=== PATIENT | female | born 1970 | race Caucasian/White ===

== ENCOUNTER 2017-05-31 07:27 | Emergency (ER) | payer MEDICAID ==
[~2017-05-31] VITALS: Ht 152.4 cm; Wt 79.4 kg
[2017-05-31 07:41] VITALS: BP 158/94
--- NOTE | 2017-05-31 07:42 | NUR ---
PT AMBULATED TO BED 5 AT THIS TIME.
--- NOTE | 2017-05-31 07:49 | NUR ---
47F BIB SELF WITH FAMILY C/O "PINCHING" NON-RADIATING FINGER PAIN X 8 DAYS; PT STATES SHE WAS CUTING ONIONS AND SINCE THEN HER R THUMB HAS BEEN IN PAIN; ONE PUS FILLED VESCILES NOTED TO DISTAL R THUMB; NO OPEN WOUNDS; SKIN INTACT; PT AA0X4; RR ARE EVEN AND UNLABORED; PT DENIES ANY CP, SOB, OR N/V/D; AWAITING ER MD ZAMORA; ALL NEES MET AT THIS TIME
--- NOTE | 2017-05-31 07:58 | NUR ---
ER MD BY BEDSIDE EXAMINING PT
[2017-05-31] MEDS ORDERED: LIDOCAINE 1% 500 MG/50 ML VIAL INJ SCH (08:00)
[2017-05-31] MEDS ORDERED: KETOROLAC 60 MG/2 ML VIAL IM ONE (08:00)
--- NOTE | 2017-05-31 08:09 | NUR ---
X RAY BY BEDSIDE
[2017-05-31] MEDS ORDERED: LIDOCAINE 1% ED 50 ML ONE (08:20)
--- NOTE | 2017-05-31 08:29 | NUR ---
ER MD DEL ANGEL BY BEDSIDE DOING I&D; PATIENT TOLERATING WELL
[2017-05-31] MEDS ORDERED: NEOMYCIN/POLYMYXIN/BACITRACIN 0.9 GM/1 PKT TP ONE (08:50)
[2017-05-31 09:05] VITALS: BP 127/86
--- NOTE | 2017-05-31 09:07 | NUR ---
Patient discharged with v/s stable. Written and verbal after care instructions given and explained. Patient alert, oriented and verbalized understanding of instructions. Ambulatory with steady gait. All questions addressed prior to discharge. ID band removed. Patient advised to follow up with PMD. Rx of motrin and keflex given. Patient educated on indication of medication including possible reaction and side effects. Opportunity to ask questions provided and answered.
== END 2017-05-31 09:07 | disposition home or self-care (01) ==
LOC: MED 07:27
DX: L02.511 Cutaneous abscess of right hand (principal); L03.011 Cellulitis of right finger
CPT/HCPCS: 26010; 73140; 96372; 99284; J1885; J2001

== ENCOUNTER 2017-08-28 21:55 | Emergency (ER) | payer MEDICAID ==
[~2017-08-28] VITALS: Ht 157.5 cm; Wt 77.2 kg
[2017-08-28 22:01] VITALS: BP 155/91
--- NOTE | 2017-08-28 22:05 | NUR ---
Patient ambulated to bed 07.
--- NOTE | 2017-08-28 22:08 | NUR ---
47/F C/O LT BOTTOM TOOTHACHE X 3 DAYS. DENIES TRAUMA, NO ACTIVE BLEEDING. DENIES FEVER/CHILLS. DENIES PMH/RX AT HOME. PT REPORTS SHE TOOK TYLENOL AT 1999 TODAY WITH MINIMAL RELIEF OF SYMPTOMS. ER MD EVALUATING PT AT BEDSIDE.
[2017-08-28] MEDS ORDERED: AMOXICILLIN 500 MG CAP PO ONE (22:20)
[2017-08-28] MEDS ORDERED: KETOROLAC 60 MG/2 ML VIAL IM ONE (22:20)
--- NOTE | 2017-08-28 22:42 | NUR ---
Patient discharged with v/s stable. Written and verbal after care instructions given and explained. Patient alert, oriented and verbalized understanding of instructions. Ambulatory with steady gait. All questions addressed prior to discharge. ID band removed. Patient advised to follow up with DENTIST. Rx of MOTRIN 800MG ONE TAB 3 TIMES A DAY PO, TRAMADOL HCL 50MG ONE TAB EVERY 6 HOURS PO PRN PAIN, AMOXICILLIN 500MG ONE CAP 3 TIMES A DAY PO X 10 DAYS given. Patient educated on indication of medication including possible reaction and side effects. Opportunity to ask questions provided and answered.
[2017-08-28 22:44] VITALS: BP 128/72
== END 2017-08-28 22:42 | disposition home or self-care (01) ==
LOC: MED 21:55
DX: K04.7 Periapical abscess without sinus (principal)
CPT/HCPCS: 96372; 99283; J1885

== ENCOUNTER 2018-06-30 08:43 | Emergency (ER) | payer MEDICAID ==
[~2018-06-30] VITALS: Ht 147.3 cm; Wt 71.9 kg
[2018-06-30 08:45] VITALS: BP 152/90
--- NOTE | 2018-06-30 08:51 | NUR ---
PT AMBULATED TO ER BED 04
[2018-06-30] MEDS ORDERED: NACL 0.9% 1,000 ML IV SCH (09:11)
--- NOTE | 2018-06-30 09:16 | NUR ---
pt comes to er with c/o lower abd pain with n/v and polyuria x 3 days, intermittent. Denies fevers/chills. Also reports some "bumps in vaginal area" denies vag bleeding or vag discharge. resp even and unlabored, in nad. son at bedside. pt's urine dip came back with glucose, pt newly diagnose with diabetes. teaching done on diabetes. pt amharic speaking, i was bale to make clear commmunication with pTIENT AND INFORM HER OF THE IMPORTANCE OF REGULAR CHECK-UPS. PT VERBALIZED UNDERSTANDING.
[2018-06-30 09:34] LABS: HEMATOCRIT 42.7 % (36-48); HEMOGLOBIN 14.5 g/dL (12.0-16.0); MEAN CORPUSCULAR HEMOGLOBIN 30 pg (27-31); MEAN CORPUSCULAR HGB CONC 34 g/dL (33-37); MEAN CORPUSCULAR VOLUME 87.5 fL (80-94); PLATELET COUNT (AUTO) 311 K/uL (140-450); RED BLOOD CELL COUNT(AUTO) 4.88 MIL/uL (4.20-5.40); RED CELL DISTRIBUTION WIDTH 13.8 % (11.6-13.7); WHITE BLOOD COUNT (AUTO) 11.3 K/uL (4.8-10.8)
[2018-06-30 09:50] LABS: APPEARANCE,URINE CLEAR (CLEAR); BILIRUBIN,URINE NEGATIVE (NEGATIVE); BLOOD, URINE NEGATIVE (NEGATIVE); COLOR,URINE YELLOW (YELLOW); LEUKOCYTE ESTERASE ,URINE NEGATIVE (NEGATIVE); NITRITE, URINE NEGATIVE (NEGATIVE); PH,URINE 5.5 (5.0-9.0); UGLUCOSE 3+ (NEGATIVE)
[2018-06-30 10:19] LABS: ALBUMIN 3.6 g/dL (3.4-5.0); ANION GAP 16.4 (8-16); CARBON DIOXIDE 20.5 mmol/L (21-32); CREATININE 0.6 mg/dL (0.6-1.3); POTASSIUM 3.9 mmol/L (3.5-5.1)
--- NOTE | 2018-06-30 10:19 | NUR ---
PT LAYING IN BED, INNAD. REPEAT ACCUCHECK, 249MG/DL AT BEDSIDE. DR JOHNSON INFORMED,.NO FURTHER ORDERS RECEIVED.
[2018-06-30 11:02] LABS: EOSINOPHILS % (MANUAL) 27 % (0-4); LYMPHOCYTES % (MANUAL) 21 % (20-46); MONOCYTES % (MANUAL) 9 % (5-12)
[2018-06-30 11:32] VITALS: BP 128/79
== END 2018-06-30 11:33 | disposition home or self-care (01) ==
LOC: MED 08:43
DX: E11.8 Type 2 diabetes mellitus with unspecified complications (principal); R03.0 Elevated blood-pressure reading, without diagnosis of hypertension
CPT/HCPCS: 36415; 80053; 81003; 81025; 82948; 83036; 83690; 84484; 85025; 93005; 96360; 99285; J7030

== ENCOUNTER 2018-08-16 00:50 | Emergency (ER) | payer MEDICAID ==
[~2018-08-16] VITALS: Ht 149.9 cm; Wt 74.1 kg
--- NOTE | 2018-08-16 00:59 | NUR ---
PT AMBULATED TO ED BED 02
--- NOTE | 2018-08-16 01:13 | NUR ---
PATIENT PRESENTS TO ED WITH C/O PAIN DURING URINATION X 1 DAY . PT DENIES ANY N/V/D; SKIN IS PINK/WARM/DRY; AAOX4 WITH EVEN AND STEADY GAIT; LUNGS CLEAR BL; HR EVEN AND REGULAR; PT DENIES ANY FEVER, CP, SOB, OR COUGH AT THIS TIME; PATIENT STATES PAIN OF 10/10 AT THIS TIME; VSS; PATIENT POSITIONED FOR COMFORT; HOB ELEVATED; BEDRAILS UP X2; BED DOWN. ER MD MADE AWARE OF PT STATUS.
[2018-08-16] MEDS ORDERED: PHENAZOPYRIDINE 100 MG TAB PO ONE (01:40)
[2018-08-16 01:55] VITALS: BP 138/74
--- NOTE | 2018-08-16 01:55 | NUR ---
Patient discharged with v/s stable. Written and verbal after care instructions given and explained. Patient alert, oriented and verbalized understanding of instructions. Ambulatory with steady gait. All questions addressed prior to discharge. ID band removed. Patient advised to follow up with PMD. Rx of PYRIDIUM, CIPRO, AND TYLENOL given. Patient educated on indication of medication including possible reaction and side effects. Opportunity to ask questions provided and answered.
== END 2018-08-16 01:55 | disposition home or self-care (01) ==
LOC: MED 00:50
DX: N39.0 Urinary tract infection, site not specified (principal)
CPT/HCPCS: 81002; 81025; 82948; 99282; 99283

== ENCOUNTER 2019-09-27 14:59 | Emergency (ER) | payer MEDICAID ==
[~2019-09-27] VITALS: Ht 152.4 cm; Wt 76.2 kg
[2019-09-27 15:00] VITALS: BP 164/85
--- NOTE | 2019-09-27 15:00 | NUR ---
PT TRIAGED, SENT BACK TO LOBBY AWAITING FOR BED
--- NOTE | 2019-09-27 16:00 | NUR ---
BIB FAMILY C/O N/V/D & RLQ PAIN RADIATING TO RUQ ABD X 8 DAYS AGO. ACCUCHECK 266 HX DM, HTN, HLD. ABD SOFT,NO TENDERNESS. PATIENT STATES PAIN OF 5/10 AT THIS TIME; VSS; PATIENT POSITIONED FOR COMFORT; HOB ELEVATED; BEDRAILS UP X1; BED DOWN. ER MD MADE AWARE OF PT STATUS.
[2019-09-27] MEDS ORDERED: NACL 0.9% 500 ML IV ONE (16:47)
[2019-09-27] MEDS ORDERED: KETOROLAC 30 MG/ML VIAL IVP ONE (16:50)
[2019-09-27] MEDS ORDERED: ONDANSETRON 4 MG/2 ML VIAL IVP ONE (16:50)
[2019-09-27 17:36] LABS: HEMATOCRIT 42.3 % (36-48); HEMOGLOBIN 13.9 g/dL (12.0-16.0); MEAN CORPUSCULAR HEMOGLOBIN 29 pg (27-31); MEAN CORPUSCULAR HGB CONC 33 g/dL (33-37); MEAN CORPUSCULAR VOLUME 88.5 fL (80-94); NEUTROPHILS % (AUTO) 52.9 % (42.2-75.2); PLATELET COUNT (AUTO) 347 K/uL (140-450); RED BLOOD CELL COUNT(AUTO) 4.79 MIL/uL (4.20-5.40); RED CELL DISTRIBUTION WIDTH 14.5 % (11.6-13.7); WHITE BLOOD COUNT (AUTO) 11.5 K/uL (4.8-10.8)
[2019-09-27 17:37] LABS: BASOPHILS # (AUTO) 0.1 K/uL (0.00-0.22); BASOPHILS % (AUTO) 0.7 % (0.0-2.0); EOSINOPHILS # (AUTO) 1.9 K/uL (0-0.4); EOSINOPHILS % (AUTO) 16.4 % (0.0-4.0); LYMPHOCYTES # (AUTO) 2.8 K/uL (2.5-16.5); LYMPHOCYTES % (AUTO) 24.4 % (20.5-51.1); MONOCYTES # (AUTO) 0.6 K/uL (0.8-1.0); MONOCYTES % (AUTO) 5.6 % (1.7-9.3); NEUTROPHILS # (AUTO) 6.1 K/uL (1.8-7.7)
[2019-09-27 17:53] LABS: POTASSIUM 4.1 mmol/L (3.5-5.1)
[2019-09-27 17:54] LABS: ALBUMIN 3.6 g/dL (3.4-5.0); ANION GAP 16.2 (8-16); CARBON DIOXIDE 23.9 mmol/L (21-32); CREATININE 0.8 mg/dL (0.6-1.3); TOTAL BILIRUBIN 0.9 mg/dL (0.0-1.0)
[2019-09-27 18:26] VITALS: BP 129/79
--- NOTE | 2019-09-27 18:26 | NUR ---
Patient discharged with BP 158/81, DENIES VIRAMONTES OR DIZZINESS AT THIS TIME. Written and verbal after care instructions given and explained. Patient alert, oriented and verbalized understanding of instructions. Ambulatory with steady gait. All questions addressed prior to discharge. ID band removed. Patient advised to follow up with PMD. Rx of MOTRIN & ZOFRAN given. Patient educated on indication of medication including possible reaction and side effects. Opportunity to ask questions provided and answered.
== END 2019-09-27 18:26 | disposition home or self-care (01) ==
LOC: MED 14:59
DX: K52.9 Noninfective gastroenteritis and colitis, unspecified (principal)
CPT/HCPCS: 36415; 74022; 80053; 81002; 81025; 85025; 96361; 96374; 96375; 99284; J1885; J2405; J7030

== ENCOUNTER 2020-01-02 18:15 | Emergency (ER) | payer MEDICAID ==
[~2020-01-02] VITALS: Ht 154.9 cm; Wt 78.5 kg
[2020-01-02 18:30] VITALS: BP 148/79
--- NOTE | 2020-01-02 18:30 | NUR ---
amb to er bed 3
--- NOTE | 2020-01-02 18:43 | NUR ---
PT C/O 4 EPISODES OF VOMITING W/ CONSISTENT SHARP UPPER ABDOMINAL PAIN SINCE 1PM TODAY. DENIES DIARRHEA, CONSTIPATION, COUGH, CP, OR SOB. LBM IS TODAY. PATIENT STATES PAIN OF 10/10 AT THIS TIME; VSS; PATIENT POSITIONED FOR COMFORT; HOB ELEVATED; BEDRAILS UP X1; BED DOWN. ER MD MADE AWARE OF PT STATUS.
--- NOTE | 2020-01-02 19:11 | NUR ---
Pt report given to LUCRECIA Dolan. Transfer of care at this time.
--- NOTE | 2020-01-02 19:12 | NUR ---
REPORT RECEIVED FROM LUCRECIA SALDAÑA. TRANSFER OF CARE AT THIS TIME. PT SITTING IN WHALEN'S IN BED. RESTING WITH SON SITTING NEARBY. PT IN GOWN, ON MONITOR. VSS. REPORTS 10/10 BILAT UPPER ABD PAIN AND N/V. AWAITING MD ZAMORA.
[2020-01-02] MEDS ORDERED: NACL 0.9% 1,000 ML IV ONE (19:35)
[2020-01-02] MEDS ORDERED: ONDANSETRON 4 MG/2 ML VIAL IVP ONE (19:35)
--- NOTE | 2020-01-02 19:50 | NUR ---
LABS DRAWN BY RN AT BEDSIDE.
--- NOTE | 2020-01-02 19:55 | NUR ---
MEDICATED WITH 4 MG IVP ZOFRAN FOR N/V. WILL REASSESS.
--- NOTE | 2020-01-02 19:56 | NUR ---
DR. OTTO MADE AWARE PT C/O 08/08 DIFFUSE UPPER ABD PAIN. WILL AWAIT TEST RESULTS BEFORE MEDICATING, PER DR. OTTO.
--- NOTE | 2020-01-02 20:15 | NUR ---
PT REPORTS NAUSEA ONLY WITH PAIN THAT PT STATES COMES AND GOES IN WAVES. PT AGAIN REQUESTING PAIN MEDICATION. EXPLAINED THAT DR. OTTO WANTS TO WAIT FOR RESULTS OF URINE AND IMAGING SO THAT WE CAN TREAT THE PAIN CORRECTLY. PT VERBALIZED UNDERSTANDING. OFFERED WARM BLANKET AND BASIC COMFORT MEASURES.
[2020-01-02 20:17] LABS: BASOPHILS # (AUTO) 0.1 K/uL (0.00-0.22); BASOPHILS % (AUTO) 0.4 % (0.0-2.0); EOSINOPHILS # (AUTO) 1.8 K/uL (0-0.4); EOSINOPHILS % (AUTO) 10.1 % (0.0-4.0); HEMATOCRIT 39.5 % (36-48); HEMOGLOBIN 13.6 g/dL (12.0-16.0); LYMPHOCYTES # (AUTO) 1.4 K/uL (2.5-16.5); LYMPHOCYTES % (AUTO) 7.9 % (20.5-51.1); MEAN CORPUSCULAR HEMOGLOBIN 29 pg (27-31); MEAN CORPUSCULAR HGB CONC 35 g/dL (33-37); MEAN CORPUSCULAR VOLUME 84.8 fL (80-94); MONOCYTES # (AUTO) 0.7 K/uL (0.8-1.0); MONOCYTES % (AUTO) 4.2 % (1.7-9.3); NEUTROPHILS # (AUTO) 13.8 K/uL (1.8-7.7); NEUTROPHILS % (AUTO) 77.4 % (42.2-75.2); PLATELET COUNT (AUTO) 332 K/uL (140-450); RED BLOOD CELL COUNT(AUTO) 4.65 MIL/uL (4.20-5.40); RED CELL DISTRIBUTION WIDTH 14.5 % (11.6-13.7); WHITE BLOOD COUNT (AUTO) 17.9 K/uL (4.8-10.8)
[2020-01-02 20:26] LABS: ALBUMIN 3.5 g/dL (3.4-5.0); ANION GAP 15.1 (8-16); CARBON DIOXIDE 25.7 mmol/L (21-32); CREATININE 0.9 mg/dL (0.6-1.3); POTASSIUM 3.8 mmol/L (3.5-5.1)
[2020-01-02 21:41] LABS: APPEARANCE,URINE CLEAR (CLEAR); BILIRUBIN,URINE NEGATIVE (NEGATIVE); BLOOD, URINE NEGATIVE (NEGATIVE); COLOR,URINE YELLOW (YELLOW); LEUKOCYTE ESTERASE ,URINE NEGATIVE (NEGATIVE); NITRITE, URINE NEGATIVE (NEGATIVE); PH,URINE 8.5 (5.0-9.0); UGLUCOSE 2+ (NEGATIVE)
--- NOTE | 2020-01-02 22:30 | NUR ---
PT SITTING QUIETLY WITH SON AT BEDSIDE. VSS. PT APPEARS COMFORTABLE AT THIS TIME. EXPLAINED TO PT THAT DR NEEDS TO REVIEW XRAY READING.
--- NOTE | 2020-01-02 23:45 | NUR ---
PT SITTING QUIETLY IN BED WITH VSS. SON SITTING NEARBY. EXPLAINED TO PT THAT DR. OTTO IS BUSY WITH A PEDIATRIC EMERGENCY AND WILL BE DELAYED. PT EXPRESSED UNDERSTANDING. NO COMPLAINTS OR CONCERNS AT THIS TIME.
[2020-01-03 00:38] VITALS: BP 116/78
--- NOTE | 2020-01-03 00:38 | NUR ---
Patient discharged with v/s stable. Written and verbal after care instructions given and explained. Patient alert, oriented and verbalized understanding of instructions. Ambulatory with steady gait. All questions addressed prior to discharge. ID band removed. Patient advised to follow up with PMD. Rx of milk of magnesia given. Patient educated on indication of medication including possible reaction and side effects. Opportunity to ask questions provided and answered.
== END 2020-01-03 00:38 | disposition home or self-care (01) ==
LOC: MED 18:15
DX: K59.00 Constipation, unspecified (principal); R11.10 Vomiting, unspecified; E11.9 Type 2 diabetes mellitus without complications; E78.5 Hyperlipidemia, unspecified
CPT/HCPCS: 36415; 74018; 80053; 81003; 82150; 83690; 85025; 96361; 96374; 99283; J2405; J7030

== ENCOUNTER 2020-10-02 11:47 | Emergency (ER) | payer MEDICAID ==
[~2020-10-02] VITALS: Ht 142.2 cm; Wt 75.7 kg
[2020-10-02 11:56] VITALS: BP 139/76
--- NOTE | 2020-10-02 11:59 | NUR ---
Pt provide UA cup to provide specimen. Pt taken to bed 3 afterwards.
[2020-10-02] MEDS ORDERED: LOSA50TA57 PO (12:01)
[2020-10-02] MEDS ORDERED: METF850T PO (12:01)
[2020-10-02] MEDS ORDERED: ATOR20TA PO (12:01)
[2020-10-02] MEDS ORDERED: GLIP10TA3 PO (12:01)
--- NOTE | 2020-10-02 12:02 | NUR ---
50/F presents to ED with complaints of headache, body aches, chills, and cough x1 day. Pt denies any loss of taste or smell. Pt denies any contacts with anyone covid positive. Pt reports having night sweats and subjective fever on and off. VSS. AOX4, mohawk speaking.
--- NOTE | 2020-10-02 12:05 | NUR ---
Covid swab collected and sent to lab.
[2020-10-02] MEDS ORDERED: KETOROLAC 60 MG/2 ML VIAL IM ONE (12:10)
[2020-10-02 12:47] VITALS: BP 139/76
--- NOTE | 2020-10-02 12:47 | NUR ---
Patient discharged with v/s stable. Written and verbal after care instructions given and explained in tamazight, translated by myself. Patient alert, oriented and verbalized understanding of instructions. Ambulatory with steady gait. All questions addressed prior to discharge. ID band removed. Patient advised to follow up with PMD. Rx of Motrin 800mg and Zofran 8mg given. Patient educated on indication of medication including possible reaction and side effects. Patient advised to wait 2-3 days for COVID results. Pt given the number to infection control to follow up if she has not received a phone call. Pt educated to keep herself isolated, wash hands requently and wear mask when around anyone. Opportunity to ask questions provided and answered.
--- NOTE | 2020-10-04 13:51 | NUR ---
Covid results received from lab. Results = POSITIVE. Hard copy requested from lab and placed in infection controls mailbox.
== END 2020-10-02 12:47 | disposition home or self-care (01) ==
LOC: MED 11:47
DX: U07.1 COVID-19 (principal); R51.9 Headache, unspecified; M79.10 Myalgia, unspecified site; E11.9 Type 2 diabetes mellitus without complications; I10 Essential (primary) hypertension; Z79.899 Other long term (current) drug therapy
CPT/HCPCS: 81002; 96372; 99283; J1885; U0003

== ENCOUNTER 2020-10-08 21:09 | Emergency (ER) | payer MEDICAID ==
[~2020-10-08] VITALS: Ht 157.5 cm; Wt 75.7 kg
[~2020-10-08 21:09] MED LIST: ATOR20TA PO; GLIP10TA3 PO; LOSA50TA57 PO; METF850T PO
[2020-10-08 21:25] VITALS: BP 160/90
--- NOTE | 2020-10-08 21:25 | NUR ---
TO TENT # 02 AMBULATORY
--- NOTE | 2020-10-08 22:00 | NUR ---
SEEN AND EXAMINED BY JEANNIE WITH ORDERS AND CARRIED OUT
--- NOTE | 2020-10-08 22:25 | NUR ---
SWAB DONE AND SENT TO LAB
[2020-10-08 22:30] VITALS: BP 142/78
--- NOTE | 2020-10-08 22:30 | NUR ---
Patient discharged with v/s stable. Written and verbal after care instructions given and explained. Patient alert, oriented and verbalized understanding of instructions. Ambulatory with steady gait. All questions addressed prior to discharge. ID band removed. Patient advised to follow up with PMD. Rx of ALBUTEROL, PREDNISONE, PROMETHAZINE DM given. Patient educated on indication of medication including possible reaction and side effects. Opportunity to ask questions provided and answered.
== END 2020-10-08 22:30 | disposition home or self-care (01) ==
LOC: MED 21:09
DX: U07.1 COVID-19 (principal); J40 Bronchitis, not specified as acute or chronic; E11.9 Type 2 diabetes mellitus without complications; I10 Essential (primary) hypertension; Z79.899 Other long term (current) drug therapy
CPT/HCPCS: 99283; U0003

== ENCOUNTER 2023-08-20 09:17 | Emergency (ER) | payer MEDICAID, OTHER ==
[~2023-08-20] VITALS: Ht 146.3 cm; Wt 78.0 kg
[~2023-08-20 09:17] MED LIST changes: +METF-713 PO; -METF850T PO
[2023-08-20 09:30] VITALS: BP 121/76; PULSE 69; RESP 18; TEMP 98.5; O2SAT 100
[2023-08-20] MEDS ORDERED: ACET-2619 PO (10:37)
== END 2023-08-20 10:40 | disposition home or self-care (01) ==
LOC: MED 09:17
DX: S90.32XA Contusion of left foot, initial encounter (principal); E11.9 Type 2 diabetes mellitus without complications; I10 Essential (primary) hypertension; Z79.899 Other long term (current) drug therapy; E78.5 Hyperlipidemia, unspecified; W20.8XXA Other cause of strike by thrown, projected or falling object, initial encounter; Y93.89 Activity, other specified; Y92.89 Other specified places as the place of occurrence of the external cause; Y99.8 Other external cause status
CPT/HCPCS: 73630; 99283

== ENCOUNTER 2024-02-14 18:23 | Emergency (ER) | payer OTHER ==
[~2024-02-14] VITALS: Ht 149.9 cm; Wt 80.7 kg
[~2024-02-14 18:23] MED LIST changes: +ACET-2619 PO
[2024-02-14 18:28] VITALS: BP 164/70; PULSE 89; RESP 18; TEMP 98.2; O2SAT 95
[2024-02-14] MEDS ORDERED: ACET-8905 PO (19:15)
[2024-02-14] MEDS ORDERED: IBUP-2213 PO (19:15)
[2024-02-14] MEDS: KETOROLAC 30 MG/ML VIAL IM ONE (19:44)
== END 2024-02-14 19:55 | disposition home or self-care (01) ==
LOC: MED 18:23
DX: K08.89 Other specified disorders of teeth and supporting structures (principal); E11.9 Type 2 diabetes mellitus without complications; I10 Essential (primary) hypertension; Z79.4 Long term (current) use of insulin; Z79.899 Other long term (current) drug therapy
CPT/HCPCS: 96372; 99283; J1885